=== PATIENT | male | born 1945 | race Caucasian/White ===

== ENCOUNTER 2017-05-17 10:42 | Day surgery (SDC) | payer MEDICARE ==
[~2017-05-17] VITALS: Ht 182.9 cm; Wt 151.9 kg
--- NOTE | ~2017-05-17 | OP ---
Record Of Operation [facility] [address] [facility] [place]. [address] NAME: NELSON TELLEZ : 47 STATUS : [facility]#: [id number] AGE: 72 ADM/REG DATE : 05/17/17 MR#: [id number] REPORT SERV DATE: 05/17/17 DICTATED BY: NEEMA GILLIAM DATE: 05/17/17 REPORT STATUS : Draft TRANSCRIBED BY: MODL DATE: 05/17/17 DATE OF PROCEDURE: 05/17/2017 TITLE OF OPERATION: Cystourethroscopy, urethral dilation. PREOPERATIVE DIAGNOSIS: Meatal stricture. POSTOPERATIVE DIAGNOSIS: Meatal stricture. INDICATIONS: Mr. Tellez is a 72-year-old male, who underwent a robotic total prostatectomy two weeks ago. He has developed a soft meatal stricture. He is here for dilation and cystoscopy. ANESTHESIA: General. COMPLICATIONS: None. IMPLANTS: 16-Swiss Garibay catheter. SPECIMENS: None. NARRATIVE: The patient was brought to the operating room, identified by his wristband. General anesthesia was induced and Levaquin was given for preoperative antibiotics. He was placed in supine position. His meatus was dilated to a caliber of 32-Swiss with sounds. I then scoped his urethra and his bladder. The prostatic fossa was widely patent. External sphincter was normal. The bladder was normal. 16-Swiss Garibay catheter was placed. The balloon was inflated with 10 mL sterile water. The patient was awoken from anesthesia and transferred to recovery room in stable condition. catheter removed in the recovery room. meatus twice a day for one week followed by daily x2 weeks. I will see him back in a month. DOMENIC/CECY Neema Gilliam MD / [id number] CC: MD ANAND [place]ows GEORGE
[~2017-05-17 10:42] MED LIST: BACTRIM DS1 TAB PO; DSS PO; FLOMAX4 PO; LOTREL1 CA4 PO; LOTREL1 CA5 PO; NEUR300 PO; NORCO1 TAB PO; PCET PO; PERCOCET1 TAB PO; REQUIP1 PO; UROXATRAL PO
[2017-05-17 11:27] LABS: ASCORBIC ACID (UR NOT ORDER) NEG (NEG); BILIRUBIN, URINE NEGATIVE (NEG); KETONE, URINE NEGATIVE (NEG); LEUKOCYTE ESTERASE(NOT OR TRACE (NEG); WBC (NOT ORDERED) (RFLEX) 8 (0-5)
== END 2017-05-17 18:50 | disposition home or self-care (01) ==
LOC: SDC 10:42
PROVIDERS: Urology
PROC: 0T7D7ZZ Dilation of Urethra, Via Natural or Artificial Opening (ICD-10-PCS; principal; 2017-05-17 12:00)
DX: N35.9 Urethral stricture, unspecified (principal); I12.9 Hypertensive chronic kidney disease with stage 1 through stage 4 chronic kidney disease, or unspecified chronic kidney disease; N18.2 Chronic kidney disease, stage 2 (mild); G47.33 Obstructive sleep apnea (adult) (pediatric); E66.9 Obesity, unspecified; Z68.42 Body mass index [BMI] 45.0-49.9, adult; Z99.89 Dependence on other enabling machines and devices; Z79.899 Other long term (current) drug therapy; Z90.5 Acquired absence of kidney; Z90.89 Acquired absence of other organs; Z90.79 Acquired absence of other genital organ(s); Z98.890 Other specified postprocedural states
CPT/HCPCS: 81001; J3010